=== PATIENT | female | born 1950 | race Caucasian/White ===

== ENCOUNTER → 2017-02-27 | Outpatient (CLI) | payer MEDICARE | LOC: SLEEP 21:30 | DX: G47.33 Obstructive sleep apnea (adult) (pediatric) (principal) | CPT/HCPCS: 95810 ==

== ENCOUNTER → 2020-11-17 | Outpatient (CLI) | payer MEDICARE ==
[~2020-11-17] MED LIST: CALCIUM PO; SYNTHROID75 MCG PO; VITAMIN D PO; [UNRECOGNIZED DRUG - OTHER] PO
== END ==
LOC: HEART 5 09:10
DX: I49.3 Ventricular premature depolarization (principal); I10 Essential (primary) hypertension; R00.2 Palpitations; I08.8 Other rheumatic multiple valve diseases; R93.1 Abnormal findings on diagnostic imaging of heart and coronary circulation
CPT/HCPCS: 93306

== ENCOUNTER → 2020-12-02 | Outpatient (CLI) | payer MEDICARE | LOC: KOH-I 12:00 | DX: M54.9 Dorsalgia, unspecified (principal); R31.0 Gross hematuria; N32.89 Other specified disorders of bladder | CPT/HCPCS: 74176 ==

== ENCOUNTER → 2021-02-03 | Day surgery (SDC) | payer MEDICARE | END | disposition home or self-care (01) | LOC: OR 11:17 | PROVIDERS: Urology | PROC: 0TJB8ZZ Inspection of Bladder, Via Natural or Artificial Opening Endoscopic (ICD-10-PCS; principal; 2021-02-03 14:30) | DX: N39.0 Urinary tract infection, site not specified (principal); N32.89 Other specified disorders of bladder; E78.5 Hyperlipidemia, unspecified; E03.9 Hypothyroidism, unspecified; E55.9 Vitamin D deficiency, unspecified; Z20.822 Contact with and (suspected) exposure to COVID-19; Z79.899 Other long term (current) drug therapy | CPT/HCPCS: C1769; C1894; C2617; J7040; J7120; U0002 ==

== ENCOUNTER → 2021-10-19 | Outpatient (CLI) | payer MEDICARE | LOC: MAMO 10:44 | DX: Z12.31 Encounter for screening mammogram for malignant neoplasm of breast (principal); Z78.0 Asymptomatic menopausal state | CPT/HCPCS: 77063; 77067 ==